=== PATIENT | female | born 1980 | race Caucasian/White ===

== ENCOUNTER 2016-12-22 17:25 | Emergency (ER) | payer OTHER ==
[~2016-12-22] VITALS: Ht 167.6 cm; Wt 59.0 kg
[2016-12-22 17:44] VITALS: BP 133/67
== END 2016-12-22 18:18 | disposition home or self-care (01) ==
LOC: ER 17:30
DX: M79.604 Pain in right leg (principal); M79.641 Pain in right hand; R07.89 Other chest pain
CPT/HCPCS: A4606; Z7502

== ENCOUNTER 2018-10-22 19:20 | Emergency (ER) | payer OTHER ==
[~2018-10-22] VITALS: Ht 165.1 cm; Wt 59.0 kg
--- NOTE | 2018-10-22 19:50 | NUR ---
PT BIBS. C/O "HAVING ABD PAIN, IM FEELING BLOATED" -N/V -SOB. -ACUTE DISTRESS.
[2018-10-22] MEDS ORDERED: KETOROLAC TROMETHAMINE INJ 30 MG/ML VIAL IV ONE (20:30)
[2018-10-22] MEDS ORDERED: IV NS 0.9% 1,000 ML BAG IV ONE (20:30)
[2018-10-22 20:32] LABS: APPEARANCE,URINE Clear (CLEAR); BILIRUBIN,URINE Negative (NEGATIVE); BLOOD, URINE Negative Ery/uL (NEGATIVE); COLOR,URINE Yellow (YELLOW); KETONES,URINE Trace (NEGATIVE); LEUKOCYTE ESTERASE ,URINE Small (NEGATIVE); NITRITE, URINE Negative (NEGATIVE); PH,URINE 5.5 (5.0-8.0); PROTEIN,URINE Negative (NEGATIVE); UGLUCOSE Negative (NEGATIVE); UROBILINOGEN,URINE 0.2 EU/dL (0.2)
[2018-10-22 20:33] LABS: BASOPHILS % (AUTO) 0.7 % (0.0-2.0); EOSINOPHILS % (AUTO) 0.8 % (0.0-6.0); HEMATOCRIT 42 % (33-45); HEMOGLOBIN 14.2 g/dL (11.5-14.8); LYMPHOCYTES # (AUTO) 2.5 /CMM (0.8-4.8); LYMPHOCYTES % (AUTO) 42.9 % (20.0-44.0); MEAN CORPUSCULAR HGB CONC 34 g/dl (31.0-36.0); MEAN CORPUSCULAR VOLUME 92 fL (82-100); MONOCYTES # (AUTO) 0.4 /CMM (0.1-1.30); MONOCYTES % (AUTO) 6.4 % (2.0-12.0); NEUTROPHILS # (AUTO) 2.9 /CMM (1.8-8.9); NEUTROPHILS % (AUTO) 49.2 % (43.0-81.0); PLATELET COUNT (AUTO) 267 /CMM (150-450); WHITE BLOOD COUNT (AUTO) 5.9 K/uL (4.3-11.0)
[2018-10-22 20:46] LABS: CREATININE 0.9 mg/dL (0.6-1.3); POTASSIUM 4.1 mmol/L (3.5-5.1)
[2018-10-22 20:49] LABS: BACTERIA,URINE Few /HPF (None Seen); RBC,URINE 0-2 /HPF (0-2); SQUAMOUS EPITHELIAL CELL,UR Few /HPF (None Seen); WBC,URINE 0-2 /HPF (0-3)
[2018-10-22 20:51] LABS: ALBUMIN 3.9 g/dL (3.4-5.0); BILIRUBIN,DIRECT 0.1 mg/dL (0.0-0.2); BILIRUBIN,TOTAL 0.2 mg/dL (0.2-1.0); TOTAL PROTEIN, SERUM 7.4 g/dL (6.4-8.2)
[2018-10-22 21:52] VITALS: BP 128/77
== END 2018-10-22 21:54 | disposition home or self-care (01) ==
LOC: ER 19:24
DX: R10.32 Left lower quadrant pain (principal)
CPT/HCPCS: 36415; 80048-TC; 80076-TC; 81000-TC; 83690-TC; 84703-TC; 85025-TC; J7030